=== PATIENT | male | born 2000 | race Caucasian/White ===

== ENCOUNTER 2019-09-09 20:17 | Emergency (ER) | payer OTHER ==
[~2019-09-09] VITALS: Ht 172.7 cm; Wt 120.2 kg
[2019-09-09 21:43] VITALS: BP 132/70
== END 2019-09-09 21:43 | disposition home or self-care (01) ==
LOC: M.ERS 20:17
DX: S61.012A Laceration without foreign body of left thumb without damage to nail, initial encounter (principal); W26.0XXA Contact with knife, initial encounter; Y93.89 Activity, other specified; Y92.89 Other specified places as the place of occurrence of the external cause; Y99.8 Other external cause status